=== PATIENT | male | born 1985 | race Caucasian/White ===

== ENCOUNTER 2017-07-13 21:17 | Emergency (ER) | payer BC ==
[~2017-07-13] VITALS: Ht 185.4 cm; Wt 62.0 kg
[2017-07-13 21:19] VITALS: TEMP 36.6; Ht 185.4 cm; Wt 62.0 kg
[2017-07-13] MEDS ORDERED: PROPARACAINE HCL 0.5% OP SOLN 15 ML BTL OP STA (21:26)
[2017-07-13] MEDS ORDERED: CIPROFLOXACIN HCL 0.3% OP SOLN 2.5 ML BTL OP STA (22:17)
[2017-07-13] MEDS ORDERED: OXYC1TAB3 PO (22:20)
[2017-07-13] MEDS ORDERED: OXYCODONE IR HOME PACK PO ONE (22:30)
[2017-07-13 22:41] VITALS: BP 124/76; PULSE 70; O2SAT 99
--- NOTE | 2017-07-13 22:42 | EMERGENCY ROOM VISIT NOTE ---
History First contact with patient: 21:25 Chief Complaint: EYE PAIN Stated Complaint: SCRATCHED CORNEA History of Present Illness The patient is a 32 year old male who presents to the Emergency Room with complaints of a possible scratch to the left eye. The patient reports that he was playing with a friend's dog when it accidentally scratched his eye. The patient denies any significant blurred vision, photosensitivity or bleeding from the eye. Tetanus immunization is up-to-date. The patient rates his discomfort a 7 out of 10. Review of Systems 10 system review was performed and was negative except for pertinent positives and negatives as indicated in history of present illness Past Medical/Surgical History Medical Problems: (1) No significant past medical history Surgical Problems: (1) No history of previous surgery Family History No significant family history Social History Smoking Status: Never Smoker Alcohol Use: occasionally Marital Status: single Occupation Status: employed Current/Historical Medications Scheduled PRN Oxycodone Ir (Roxicodone Ir), 1-2 TAB PO Q4H PRN for Pain Physical Exam Vital Signs Date Time Temp Pulse Resp B/P (MAP) Pulse Ox O2 Delivery O2 Flow Rate FiO2 07/13/17 21:19 36.6 73 18 95/69 99 Room Air Right Eye Acuity: 20/20 Left Eye Acuity: 20/20 Physical Exam CONSTITUTIONAL: Healthy and well nourished. Alert and oriented X 3 with positive affect. Patient appears in mild discomfort on initial exam. HEENT: Normocephalic, atraumatic. Pupils equal, round and reactive. Examination of left eye does not show any bloody drainage. There is no conjunctival injection. EOMs intact without discomfort or signs of entrapment. There is no periorbital erythema, ecchymosis, edema or tenderness to palpation. NECK: Full active range of motion without discomfort. INTEGUMENTARY: No rash or other significant dermatologic conditions noted. NEUROLOGIC: Facial sensations are intact. Medical Decision & Procedures Procedure Slit lamp and fluorescein exam were performed after applying 2 drops of Alcaine in the left eye. This completely resolved the patient's discomfort. Slit lamp exam does not show any hyphema or trauma to the upper or lower eyelids. Fluorescein exam shows a vertical abrasion to the medial half of the cornea. It does not cross the central axis of vision. Negative Chris test. ED Course Patient history and physical exam were performed. Nurse's notes were reviewed. Vital signs were reviewed and were normal. Slit lamp and fluorescein exam shows evidence for a left corneal abrasion. The patient was dispensed Ciloxan 0.3% ophthalmic solution, with instructions for its use. He was encouraged to intermittently apply a cool compress to the eye. An ice pack was provided. He was also instructed to alternate ibuprofen and Tylenol for baseline pain relief. The patient was dispensed a home pack and provided a prescription for OxyIR as needed for additional pain relief. The patient was instructed to follow-up with an beauty culturist if symptoms are not improving within the next 48 hours. He was instructed to seek further emergent reevaluation for any progressively worsening pain, blurred vision, redness or drainage from the eye. The patient was happy with plan of care, and denied any pain at the conclusion of my exam. Medical Decision Medication Reconcilliation Current Medication List: was personally reviewed by me Blood Pressure Screening Patient's blood pressure: Normal blood pressure Impression Primary Impression: Left corneal abrasion Departure Information Dispostion Home / Self-Care Prescriptions Oxycodone Ir (Roxicodone Ir) 5 Mg Tab 1-2 TAB PO Q4H Y for Pain, #10 TAB For Initial Treatment Prov: Kartik Bustos PA 07/13/17 Forms HOME CARE DOCUMENTATION FORM, IMPORTANT VISIT INFORMATION Patient Instructions My [facility] Additional Instructions 1 ciprofloxicin antibiotic eyedrop every 4-6 hrs (while awake) for 5 days. Ibuprofen 800 mg and/or Tylenol 1000 mg every 8 hours. You may also alternate these medications for more effective pain relief: Ibuprofen --4 HRS--> Tylenol --4 HRS--> ibuprofen --4 HRS--> Tylenol .... OxyIR 5-10 mg every 4 hrs as needed for worse pain. Do not drink or drive while taking OxyIR. You have been provided a written prescription if needed for more OxyIR pain medication. You may also intermittently apply a cool compress for additional relief. Follow-up with an beauty culturist if no improvement within 48 hrs. Seek further emergent reevaluation for any progressively worsening pain, redness or drainage from the eye. Problem Qualifiers Primary Impression: Left corneal abrasion Encounter type: initial encounter Qualified Codes: S05.02XA - Injury of conjunctiva and corneal abrasion without foreign body, left eye, initial encounter
== END 2017-07-13 22:44 | disposition home or self-care (01) ==
LOC: C.EDB 21:18 → C.EDD 22:44
DX: S05.02XA Injury of conjunctiva and corneal abrasion without foreign body, left eye, initial encounter (principal); W54.1XXA Struck by dog, initial encounter; Y93.89 Activity, other specified; Y99.8 Other external cause status